=== PATIENT | female | born 1970 | race Caucasian/White ===

== ENCOUNTER → 2020-02-07 | Outpatient (CLI) | payer OTHER | END | disposition home or self-care (01) | LOC: RAD 16:26 | PROVIDERS: ATTEND Nurse Practitioner | DX: M25.473 Effusion, unspecified ankle (principal) | CPT/HCPCS: 93970 ==

== ENCOUNTER 2020-10-20 07:34 | Outpatient (CLI) | payer OTHER | END 2020-10-20 23:59 | disposition home or self-care (01) | LOC: CFH 07:34 | PROVIDERS: ATTEND Internal Medicine Clinical Cardiac Electrophysiology | DX: I36.1 Nonrheumatic tricuspid (valve) insufficiency (principal); R00.0 Tachycardia, unspecified | CPT/HCPCS: 93306 ==